=== PATIENT | male | born 1985 | race Caucasian/White ===

== ENCOUNTER 2017-08-17 16:33 | Emergency (ER) | payer OTHER ==
[~2017-08-17] VITALS: Ht 188 cm; Wt 192.3 kg
[~2017-08-17 16:33] MED LIST: CYCL-36 PO; IBUP-238 PO; LORT7.5T3 PO
[2017-08-17 16:37] VITALS: BP 142/85; PULSE 86; RESP 16; TEMP 98.7; O2SAT 95
[2017-08-17] MEDS ORDERED: METH10SO PO (16:56)
[2017-08-17] MEDS ORDERED: KETOROLAC TROMETHAMINE 30 MG/ML (IVP) VIAL IV PUSH ONE (17:15)
[2017-08-17] MEDS ORDERED: METOCLOPRAMIDE INJ 10 MG in SODIUM CHLORIDE 0.9% INJ 50 ML IV ONE (17:15)
[2017-08-17] MEDS ORDERED: DIAZEPAM 5 MG TAB PO ONE (17:15)
--- NOTE | 2017-08-17 17:29 | PD ---
HPI Chief Complaint: Back pain Time Seen by Provider: 17:02 Travel History International Travel<30 days: No Contact w/Intl Traveler<30days: No Traveled to known affect area: No History of Present Illness HPI 32yo M with no significant PMH presents to the ED with 4 days of flu like symptoms. Pt has been coughing, having nasal congestion, upper and lower back pain, headache for 4 days. Pt said upper back pain is worst with body movement and neck pain, and also has some pain in lower back. Feels generalized bodyache. Also with intermittent fever. Pt has history of migraine headache and this feels like his migraine headache but is lasting longer than usual. Pain is bilateral temporal region associated with nausea and photophobia. Denies any chest pain, sob, abdominal pain, vomiting, focal weakness or numbness. Pt is a cig smoker and has been wheezing. Denies any IVDA. PFSH Past Medical History Cardiovascular Problems: Yes (htn , havent got script filled) Diminished Hearing: No Tetanus Vaccination: Unknown Influenza Vaccination: No ?: Not Social History Alcohol Use: Yes (OCCASIONAL) Tobacco Use: Yes (1 PPD) Substance Use: No Allergies-Medications (Allergen,Severity, Reaction): Coded Allergies: No Known Allergies (Verified Adverse Reaction, Unknown, 08/17/17) Reported Meds & Prescriptions Reported Meds & Active Scripts Active Reported Methadone Liq (Methadone HCl) 2 Mg/Ml Liqd 5 Mg PO DAILY Review of Systems Except as stated in HPI: all other systems reviewed are Neg Physical Exam Narrative GENERAL: 32yo M in mild distress. SKIN: Diaphoretic. HEAD: Atraumatic. Normocephalic. EYES: Pupils equal and round. No scleral icterus. No injection or drainage. ENT: No nasal bleeding or discharge. Mucous membranes pink and moist. NECK: No nuchal rigidity. No ttp cervical spine. FROM in neck. There is reproducible upper back pain with neck movement. CARDIOVASCULAR: Regular rate and rhythm. No murmur appreciated. RESPIRATORY: No accessory muscle use. Clear to auscultation. Breath sounds equal bilaterally. GASTROINTESTINAL: Abdomen soft, non-tender, nondistended. BACK: +TTP mid T3-4. +TTP L3-4. No mass or erythema. MUSCULOSKELETAL: No obvious deformities. No clubbing. No cyanosis. No edema. NEUROLOGICAL: Awake and alert. No obvious cranial nerve deficits. Motor grossly within normal limits in all extremities. Sensation intact. Negative Kernig's sign. Normal speech. PSYCHIATRIC: Appropriate mood and affect; insight and judgment normal. Data Data Last Documented VS Vital Signs Date Time Temp Pulse Resp B/P (MAP) Pulse Ox O2 Delivery O2 Flow Rate FiO2 08/17/17 16:37 98.7 86 16 142/85 (104) 95 Orders Orders Influenzae A/B Antigen (08/17/17 17:14) Diazepam (Valium) (08/17/17 17:15) Complete Blood Count With Diff (08/17/17 17:14) Basic Metabolic Panel (Bmp) (08/17/17 17:14) Metoclopramide Inj (Reglan Inj) (08/17/17 17:15) Ketorolac Inj (Toradol Inj) (08/17/17 17:15) Albuterol-Ipratropium Neb (Duoneb Neb) (08/17/17 17:15) Chest, Single Ap (08/17/17 ) Morphine Inj (Morphine Inj) (08/17/17 18:30) Mri T Spine W & W/O Contrast (08/17/17 ) Mri L Spine W&W/O Contrast (08/17/17 ) Morphine Inj (Morphine Inj) (08/17/17 19:45) Labs Laboratory Tests Test 08/17/17 17:35 White Blood Count 6.2 TH/MM3 Red Blood Count 5.31 MIL/MM3 Hemoglobin 14.9 GM/DL Hematocrit 44.0 % Mean Corpuscular Volume 83.0 FL Mean Corpuscular Hemoglobin 28.1 PG Mean Corpuscular Hemoglobin Concent 33.8 % Red Cell Distribution Width 15.3 % Platelet Count 202 TH/MM3 Mean Platelet Volume 8.3 FL CBC Comment AUTO DIFF Differential Total Cells Counted 100 Neutrophils % (Manual) 47 % Band Neutrophils % 2 % Lymphocytes % 26 % Monocytes % 7 % Eosinophils % 3 % Basophils % 1 % Neutrophils # (Manual) 3.2 TH/MM3 Metamyelocytes 2 % Differential Comment FINAL DIFF MANUAL Atypical Lymphocytes 12 % Platelet Estimate NORMAL Platelet Morphology Comment NORMAL Red Cell Morphology Comment NORMAL Blood Urea Nitrogen 9 MG/DL Creatinine 0.87 MG/DL Random Glucose 128 MG/DL Calcium Level 9.0 MG/DL Sodium Level 134 MEQ/L Potassium Level 4.3 MEQ/L Chloride Level 100 MEQ/L Carbon Dioxide Level 29.9 MEQ/L Anion Gap 4 MEQ/L Estimat Glomerular Filtration Rate 103 ML/MIN MDM Medical Decision Making Medical Screen Exam Complete: Yes Emergency Medical Condition: Yes Differential Diagnosis Influenza vs. URI vs. migraine headache vs. pneumonia Narrative Course 32yo M with flu like symptoms for 4 days. I have reviewed the triage note that patient with headache, nuchal rigidity, bodyaches, fever and back pain for 4 days. I do not feel that patient have nuchal rigidity but that he has worsening upper back pain with movement of his neck. Do not feel that pt has bacterial meningitis for 4 days and do not feel that pt needs lumbar puncture at this time. Pt given toradol, reglan and reevaluated at bedside. Said headache has resolved but back pain is still severe. Pt is really mainly here for the back pain today. 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 Pt given valium and morphine and is still in a lot of pain. Given then pt has fever of 101F yesterday, diaphoretic and has point tenderness in thoracic and lumbar spine, will do MRI TS and LS. Pt denies any IVDA. No trauma or focal neurologic deficits. Labs reviewed, no leukocytosis. BMP unremarkable. Pt feels better after duonebs x3. Pt is morbidly obese and sleeps on recliner and likely has sleep apnea. Denies any chest pain or sob. Influenza negative. I spoke to artificial breeding technician who said that the weight limit of the MRI machine at [place] is 350 pounds but the MRI machine at [facility] can hold over 500 pounds. We are arranging transportation to transfer pt to the main ED for MRI and then transferring him back. I informed pt and he said he wants to sign out against medical advice. Said if he feels bad, he will go to the [facility] tomorrow. I informed him that MRI can be done tonight and I am worry enough to want to have the MRI in the ED. AMA: The risks of leaving against medical advice without further evaluation treatment were discussed with the patient. These risks include cardiac dysfunction, cardiac dysrhythmia, possible heart attack, possible stroke or . The patient indicated understanding of these risks and appeared to have the capacity to make this decision. Diagnosis Primary Impression: Back pain Qualified Codes: M54.89 - Other dorsalgia Patient Instructions: General Instructions Departure Forms: Tests/Procedures Additional Instructions: Please return to the ED if you change your mind. Med/Other Pt SpecificInfo: Prescription(s) given Scripts Acetaminophen (Tylenol) 325 Mg Tab 650 MG PO Q4H Y for PAIN SCALE 1 TO 4, #20 TAB 0 Refills Prov: Madalyn Block DO 08/17/17 Albuterol 18 GM Inh (Ventolin Hfa 18 GM Inh) 90 Mcg/Act Aer 2 PUFF INH Q4H Y for SHORTNESS OF BREATH, #1 INHALER 0 Refills Prov: Madalyn Block DO 08/17/17 Disposition: 07 AGAINST MEDICAL ADVICE Condition: Stable Madalyn Block DO Aug 17, 2017 17:29
--- NOTE | 2017-08-17 17:30 | RADRPT ---
EXAM DATE/TIME: 08/17/2017 17:17 [facility] COMPARISON: No previous studies available for comparison. INDICATIONS : Back pain, headache, cough, fever x 4 days. MEDICAL HISTORY : Hypertension. Smoker SURGICAL HISTORY : None. ENCOUNTER: Initial ACUITY: 4 - 6 days PAIN SCORE: 0/10 LOCATION: chest FINDINGS: A single view of the chest demonstrates the lungs to be symmetrically aerated without evidence of mas s, infiltrate or effusion. The cardiomediastinal contours are unremarkable. Osseous structures are intact. CONCLUSION: No acute disease. Andrew Montejo MD on August 17, 2017 at 17:28 Board Certified Radiologist. This report was verified electronically.
[2017-08-17] MEDS: RESP: ALBUTEROL 2.5 MG/IPRATROPIUM 0.5 MG NEB (SCH) INH ×2 (17:37→17:38)
[2017-08-17 17:58] LABS: HEMOGLOBIN 14.9 GM/DL (13.0-17.0); MEAN CORPUSCULAR HEMOGLOBIN 28.1 PG (27.0-34.0); MEAN CORPUSCULAR HGB CONC 33.8 % (32.0-36.0); MEAN PLATELET VOLUME 8.3 FL (7.0-11.0); PLATELET COUNT 202 TH/MM3 (150-450); RED BLOOD COUNT 5.31 MIL/MM3 (4.50-5.90); RED CELL DISTRIBUTION WIDTH 15.3 % (11.6-17.2); WHITE BLOOD COUNT 6.2 TH/MM3 (4.0-11.0)
[2017-08-17 18:15] LABS: BICARBONATE 29.9 MEQ/L (21.0-32.0)
[2017-08-17 18:18] LABS: CREATININE 0.87 MG/DL (0.60-1.30)
[2017-08-17] MEDS ORDERED: MORPHINE SULFATE 8 MG/ML INJ IV PUSH ONE (18:30)
[2017-08-17 19:22] LABS: ATYPICAL LYMPHOCYTES 12 % (0-0); BANDS 2 % (0-6); BASOPHILS 1 % (0-2); LYMPHOCYTES 26 % (9-44); METAMYELOCYTES 2 % (0-1); MONOCYTES 7 % (0-8); NEUTROPHIL # MANUAL DIFF 3.2 TH/MM3 (1.8-7.7); POLYS (SEG NEUTROPHILS) 47 % (16-70)
[2017-08-17] MEDS ORDERED: VENTAER INH (19:45)
[2017-08-17] MEDS ORDERED: MORPHINE SULFATE 2 MG/ML SYRINGE IV PUSH ONE (19:45)
[2017-08-17] MEDS ORDERED: TYLE325T PO (19:45)
[2017-08-17 19:57] VITALS: BP 140/84; TEMP 98.9
== END 2017-08-17 19:59 | disposition left against medical advice (07) ==
LOC: PHED 16:33
DX: M54.89 Other dorsalgia (principal); R05 Cough; R51 Headache; E66.01 Morbid (severe) obesity due to excess calories; R50.9 Fever, unspecified; F17.210 Nicotine dependence, cigarettes, uncomplicated
CPT/HCPCS: 71045; 80048; 85007; 85027; 87804; 94640; 94664; 96365; 96375; 96376; 99284; J1885; J2270; J2765